=== PATIENT | female | born 1985 | race African-American/Black ===

== ENCOUNTER 2017-10-08 19:19 | Inpatient (IN) | payer OTHER ==
[2017-10-08 19:25] VITALS: BMI 29.0
--- NOTE | 2017-10-08 20:16 | PDOC ---
History of Present Illness - General History Source: Patient Exam Limitations: No Limitations - History of Present Illness Initial Comments: 10/08/17 20:58 The patient is a year old female, with a significant past medical history of elevated blood pressure (not treated) s/p emergent (2 weeks), who presents to the emergency department with, shortness of breath, chest pain, and one episode of hemoptysis. The patient report three days of orthopnea and dyspnea upon exertion. She reports her symptoms to wake her up at night. She reports nausea and one episode of hemoptysis last night. She describes her chest pain as pressure-like. Secondary to her symptoms she reports bilateral edema of her legs since delivery. She denies any history of clots. She denies recent fevers, chills, headache or dizziness. She denies recent vomit, diarrhea or constipation. She denies recent dysuria, frequency, urgency or hematuria. Allergies: NKA Past surgical history: (s/p two weeks) Social history: Nonsmoker. Denies EtOH use and recreational drug use. Primary Care Physician: Dr. Negro Tomlin <Estrada Engle - Last Filed: 10/08/17 23:47> <Sterling Torre - Last Filed: 10/09/17 00:11> - General Chief Complaint: Hemoptysis Stated Complaint: S.O.B Time Seen by Provider: 10/08/17 20:09 Past History <Estrada Engle - Last Filed: 10/08/17 23:47> - Past Medical History COPD: No - Suicide/Smoking/Psychosocial Hx Smoking Status: No Smoking History: Former smoker Have you smoked in the past 12 months: No Number of Cigarettes Smoked Daily: 0 Information on smoking cessation initiated: No Hx Alcohol Use: No Drug/Substance Use Hx: No Substance Use Type: None <Sterling Torre - Last Filed: 10/09/17 00:11> - Past Medical History Allergies/Adverse Reactions: Allergies Allergy/AdvReac Type Severity Reaction Status Date / Time No Known Allergies Allergy Verified 10/08/17 20:07 Home Medications: Ambulatory Orders Pnv No.95/Ferrous Fum/Folic AC [ Tablet] 1 each PO DAILY 07/10/12 Ibuprofen [Motrin -] 600 mg PO QID PRN 10/08/17 Review of Systems - Review of Systems Able to Perform ROS?: Yes Comments:: 10/08/17 20:58 CONSTITUTIONAL: No fever, no chills, no fatigue EYES: No visual changes ENT: No ear pain, no sore throat CARDIOVASCULAR: +chest pain. no palpitations RESPIRATORY:+SOB. +Orthopnea. +Dyspnea upon exertion. +Hemoptysis. No cough GI: +Nausea. No abdominal pain, no vomiting, no constipation, no diarrhea GENITOURINARY: No dysuria, no frequency, no hematuria MUSCULOSKELETAL: No back pain, no joint pain, no myalgias EXTREMITIES: +Bilateral edema of legs. SKIN: No rash NEURO: No headache All Other Systems: Reviewed and Negative <Estrada Engle - Last Filed: 10/08/17 23:47> *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 - Vital Signs Last Vital Signs Temp Pulse Resp BP Pulse Ox 98.2 F 70 20 163/103 100 10/08/17 19:20 10/08/17 19:20 10/08/17 19:20 10/08/17 19:20 10/08/17 19:20 - 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 Comments: 10/08/17 21:55 CONSTITUTIONAL: Well-appearing; well-nourished; in no apparent respiratory distress HEAD: Normocephalic; atraumatic EYES: PERRL; EOM intact ENMT: External appears normal; normal oropharynx NECK: Supple; non-tender; no cervical lymphadenopathy CARD: Normal S1, S2; no murmurs, rubs, or gallops RESP: +Crackles at bases. Normal chest excursion with respiration; breath sounds equal bilaterally; no wheezes, rhonchi, or rales ABD: Suprapubic incision well-appealing without pus or discharge. Soft, non- distended; non-tender; no palpable organomegaly, no palpable hernias EXT: + +1 pitting edema bilateral legs. Normal ROM in all four extremities; non- tender to palpation; distal pulses intact SKIN: Warm, dry, no rash NEURO: No focal neurological deficiencies. <Estrada Engle - Last Filed: 10/08/17 23:47> - Vital Signs Last Vital Signs Temp Pulse Resp BP Pulse Ox 98.2 F 70 20 163/103 100 10/08/17 19:20 10/08/17 19:20 10/08/17 19:20 10/08/17 19:20 10/08/17 19:20 <Sterling Torre - Last Filed: 10/09/17 00:11> ED Treatment Course - LABORATORY CBC & Chemistry Diagram: 10/08/17 20:13 10/08/17 20:20 - ADDITIONAL ORDERS Additional order review: Laboratory Results 10/08/17 20:20 Sodium 138 Potassium 5.3 H Chloride 105 Carbon Dioxide 23 Anion Gap 10 BUN 61 H Creatinine 6.2 H Creat Clearance w eGFR 7.88 Random Glucose 89 Calcium 7.1 L Total Bilirubin 0.5 AST 13 L ALT 26 Alkaline Phosphatase 115 Creatine Kinase 182 Troponin I 0.03 Total Protein 5.9 L Albumin 2.6 L 10/08/17 20:13 RBC 3.38 L MCV 87.0 MCHC 32.5 RDW 14.1 MPV 7.0 L Neutrophils % 68.2 Lymphocytes % 19.6 Monocytes % 8.7 Eosinophils % 2.7 Basophils % 0.8 <Estrada Engle - Last Filed: 10/08/17 23:47> - LABORATORY CBC & Chemistry Diagram: 10/08/17 20:13 10/08/17 20:20 <Sterling Torre - Last Filed: 10/09/17 00:11> Progress Note - Progress Note Progress Note: : bun/cre: 9.0/0.6; H/H: 9.9/30.7 <Sterling Torre - Last Filed: 10/09/17 00:11> Medical Decision Making - Medical Decision Making 10/08/17 9:11pm Call placed to Dr. Jaffe's (insulation machine operator cash van salesperson) answering service, awaiting call back. 9:42pm Second call placed to Dr. Jaffe's answering service, awaiting call back. 9:45pm Call placed to Dr. Win, cost manager cash van salesperson, awaiting call back. 9:58pm Call back from Dr. Magaña, insulation machine operator cash van salesperson, case was discussed. 10:00pm Call back from Dr. Win, case was discussed. 11:05pm Microblog to hospitalist for inpatient telemetry admission. 11:17pm Call back from cash van salesperson hospitalist, Dr. Johnson, case was discussed. EXAM: Venous duplex bilateral lower extremities FINDINGS: There is no DVT of the right or left lower extremity. IMPRESSION: No DVT. Read by: Albert Tyler MD EXAM: US RENAL FINDINGS: Right kidney is 11.2 cm in length and appears slightly echogenic suggesting medical renal disease. There may be tiny nonobstructive stones in the lower pole.Left kidney is 11.7 cm in length and appears slightly echogenic as well. There may be tiny nonobstructive stones in the midpole. No hydronephrosis. IMPRESSION: Suspected medical renal disease and possible tiny bilateral renal stones. No hydronephrosis. Read by: Albert Tyler MD EXAM: CT CHEST without contrast FINDINGS: There is no aortic aneurysm. There is no significant mediastinal or hilar adenopathy. The heart size is normal. The trachea and bronchi are patent. There are minimal bilateral pleural effusions. No pericardial effusion. Mild interstitial edema is noted. Slightly more focal lobular infiltrates are noted bilaterally, predominantly in the right lower lobe which may represent pneumonia. The upper abdominal structures are normal. IMPRESSION: Mild interstitial edema and minimal bilateral pleural effusions with suspected bilateral pneumonia. Read by: Albert Tyler MD <Estrada Engle - Last Filed: 10/08/17 23:47> - Critical Care Time Total Critical Care Time (minutes): 45 Critical Care Statement: The care of this patient involved high complexity decision making to prevent further life threatening deterioration of the patient 's condition and/or to evaluate & treat vital organ system(s) failure or risk of failure. - Medical Decision Making 10/08/17 22:17 Patient is a 31-year-old female, 2 weeks status post emergent for nuchal cord and breech presentation presents with signs and symptoms of cardiomyopathy. Patient complains of dyspnea with minimal exertion, orthopnea, and episode of hemoptysis on the day of arrival. Patient also complaining of persistent lower extremity edema. On initial evaluation, patient is awake and alert, well-appearing, hypertensive, with oxygen saturation of 99% in room air when supine, with crackles at the bases and +1 pitting edema of lower extremities bilaterally. CBC reveals persistent moderate anemia with hemoglobin of 9 and hematocrit of 29. CMP reveals evidence of acute renal failure with BUN of 60 and creatinine of 6.1 (on 09/25/2017, patient's BUN/ creatinine were noted to be 9/0.6). Chest x-ray reveals cardiomegaly, with cephalization, prominent pulmonary vasculature, mild interstitial edema, and left sided pleural effusion. I do not suspect preeclampsia, pulmonary embolism is still in differential and lower extremity Doppler ultrasound will be obtained. Case has been discussed with Dr. Magaña of renal and Dr. Rangel of cardiology. We'll administer hydralazine for hypertension. There is no indication for aggressive diuresis at this time as the risk of irreversible renal injury is high. We will place Flores catheter for measurement of in/out; There is no indication for emergent dialysis either at this time as the patient is not appear to be in any respiratory distress currently. Patient will be admitted to telemetry for a 2-D echocardiogram to evaluate ejection fraction and further evaluation and treatment. 10/08/17 23:22 Patient remains hypotensive. We'll administer hydralazine-50 mg by mouth. Doppler ultrasound of lower extremities reveals no evidence of DVT bilaterally. Renal ultrasound reveals no evidence of hydronephrosis, echogenic renal parenchyma is noted consistent with renal disease. 10/09/17 00:[address] Magaña nephrology. Will hydrate by mouth, will hold off on aggressive diuresis at this time. Will obtain urine electrolytes. Will measure urinary output and input. Will obtain 2-D echo. Will reassess. <Sterling Torre - Last Filed: 10/09/17 00:11> *DC/Admit/Observation/Transfer - Attestations Scribe Attestion: 10/08/17 20:58 Documentation prepared by Estrada Engle, acting as medical referral coordinator for Sterling Torre MD. <Estrada Engle - Last Filed: 10/08/17 23:47> - Discharge Dispostion Admit: Yes - Attestations Physician Attestion: 10/08/17 22:16 The documentation was prepared by the scribe under my direct supervision. I have reviewed the documentation which correctly represents the findings, medical decision-making and critical action taken by me. <Sterling Torre - Last Filed: 10/09/17 00:11> Diagnosis at time of Disposition: cardiomyopathy Acute renal failure Qualifiers: Acute renal failure type: unspecified Qualified Code(s): N17.9 - Acute kidney failure, unspecified - Discharge Dispostion Condition at time of disposition: Fair - Referrals Referrals: Negro Tomlin MD [Primary Care Provider] - - Patient Instructions - Post Discharge Activity
[2017-10-08 20:25] LABS: BASO % 0.8 % (0-2.0); EOS % 2.7 % (0-4.5); HEMATOCRIT 29.4 % (32.4-45.2); HEMOGLOBIN 9.6 GM/dL (10.7-15.3); LYMPH % 19.6 % (8-40); MCH 28.3 pg (25.7-33.7); MCHC 32.5 g/dl (32.0-36.0); MONO % 8.7 % (3.8-10.2); NEUT % 68.2 % (42.8-82.8); PLATELET COUNT 357 K/MM3 (134-434); RBC 3.38 M/mm3 (3.60-5.2); RDW 14.1 % (11.6-15.6); WHITE BLOOD COUNT 5.6 K/mm3 (4.0-10.0)
[2017-10-08 20:48] LABS: ALBUMIN 2.6 g/dl (3.4-5.0); ANION GAP 10 (8-16); BILIRUBIN,TOTAL 0.5 mg/dL (0.2-1.0); BLOOD UREA NITROGEN 61 mg/dL (7-18); CALCIUM 7.1 mg/dL (8.5-10.1); CHLORIDE 105 mmol/L (98-107); CO2 23 mmol/L (21-32); CREATININE 6.2 mg/dL (0.55-1.02); GLUCOSE,RANDOM 89 mg/dL (74-106); POTASSIUM 5.3 mmol/L (3.5-5.1); SGOT/AST 13 U/L (15-37); SGPT/ALT 26 U/L (12-78); SODIUM 138 mmol/L (136-145); TOT PROT 5.9 g/dl (6.4-8.2)
[2017-10-08 20:51] LABS: ALK PHOS 115 U/L (45-117)
[2017-10-08 20:55] LABS: INR 1.08 (0.82-1.09); PROTHROMBIN TIME (PATIENT) 12.2 SEC (9.98-11.88)
[2017-10-08] MEDS ORDERED: hydrALAZINE HCL 50 MG TABLET (FP) PO ONE (23:03)
[2017-10-08] MEDS ORDERED: hydrALAZINE HCL 25 MG TABLET (FP) ONE (23:04)
--- NOTE | 2017-10-09 00:17 | CON.NEP ---
Consult Consult Specialty:: Nephrology Referred by:: dr alex Reason for Consultation:: acute renal failure - History of Present Illness Chief Complaint: sob, orthopnea History of Present Illness: 31 y/o f presents with advanced kidney failure, cardiomegaly, and pulm vascular congestion she is s/p c section for failure to progress and malpresentation on 09/26 she has been taking ibuprofen 600 mg po q 6h since surgery she too percocet along with ibuprofen x 4 rays , then continued with ibuprofen alone of note she reports voiding large amounts of urine and she had massive lower ext edema that is resolving now she also had - Alcohol/Substance Use Hx Alcohol Use: No - Smoking History Smoking history: Former smoker Have you smoked in the past 12 months: No Aproximately how many cigarettes per day: 0 Home Medications - Allergies Allergies/Adverse Reactions: Allergies Allergy/AdvReac Type Severity Reaction Status Date / Time No Known Allergies Allergy Verified 10/08/17 20:07 - Home Medications Home Medications: Ambulatory Orders Pnv No.95/Ferrous Fum/Folic AC [ Tablet] 1 each PO DAILY 07/10/12 Ibuprofen [Motrin -] 600 mg PO QID PRN 10/08/17 Nephrology Consult - Height Height: 5 ft 6 in - Weight Weight: 180 lb - BMI Body Mass Index (BMI): 29.0 - Lab Results CBC,BMP: CBC, BMP 10/08/17 20:13 10/08/17 20:20 Anion Gap: Anion Gap Anion Gap 10 (8-16) 10/08/17 20:20 - 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ination Vital Signs: Vital Signs Temperature 98.2 F 10/08/17 19:20 Pulse Rate 74 10/08/17 23:02 Respiratory Rate 18 10/08/17 23:02 Blood Pressure 170/112 10/08/17 23:02 O2 Sat by Pulse Oximetry (%) 96 10/08/17 23:02 Assessment/Plan 10/08/17 10/08/17 10/08/17 20:13 20:20 21:45 Plt Count 357 Calcium 7.1 L AST 13 L B-Natriuretic Peptide 1422.69 H Total Protein 5.9 L Albumin 2.6 L 1-ADVANCED KIDNEY FAILURE IN SETTING OF HIGH INTAKE OF IBUPROFEN X 2 WEEKS, AND MARKED POLYURIA/DIURESIS OF EDEMA FLUID 2- HEART FAILURE AND HTN R/O HYPERTENSIVE CRISIS VS HTN FROM NSAIDS 3- HYPERKALEMIA TENDENCY HEMODYNAMICALLY MEDIATED TISHA 2/2 NSAIDS, EFFECTIVE VOLUME DEPLETION FROM HEART FAILURE (HIGH BNP) R/O CARDIOPMYOPATHY R/O AIN R/O ACUTE PAPILLARY NECROSIS R/O PRE-ECLAMPSIA (LOW S ALBUMIN) UNDERLYING CKD FROM CHRONIC HTN (DENSE KIDNEYS ON SONO) PLAN- CHECK AND AWAIT U/A FRACTIONAL EXCRETION OF NA URINE EOSINOPHILS STRICT I AND O HYDRATE ORALLY NEXT 24 HRS
[2017-10-09] MEDS: PANTOPRAZOLE SODIUM 40 MG VIAL IVPUSH SCH ×2 (00:38→09:14)
--- NOTE | 2017-10-09 00:47 | HP ---
CHIEF COMPLAINT: Trouble breathing PCP: HISTORY OF PRESENT ILLNESS: 31 yo F with no significant pmhx presents two weeks post with orthopnea and hypertension. She states that 2 weeks ago she had an emergent c- section 2/ to wrapped cord and distress. Post op patient was in significant pain and was given Percocet and Ibuprofen for pain. At that time she noted significant leg edema. She was taking 600mg Ibuprofen Q4h everyday for the past two weeks. She notice over this past week that she has had trouble breathing especially while lying flat. Swelling in legs subsided two days ago but shortness of breath persists. She endorsed increased frequency and urine output over the past week. Urine is light yellow in color and not foul smelling. No dysuria. ER course was notable for: (1)hydralazine for HTN (2)Kidney US shows no hydro (3)Cr. 6.5 Recent Travel:denies PAST MEDICAL HISTORY:none PAST SURGICAL HISTORY: Social History: Smoking:never Alcohol:denies Drugs: denies Family History: Allergies No Known Allergies Allergy (Verified 10/08/17 20:07) HOME MEDICATIONS: Home Medications Medication Instructions Recorded Pnv No.95/Ferrous Fum/Folic AC 1 each PO DAILY 07/10/12 [ Tablet] Ibuprofen [Motrin -] 600 mg PO QID PRN 10/08/17 REVIEW OF SYSTEMS CONSTITUTIONAL: generalized weakness, malaise, Absent: fever, chills, diaphoresis, loss of appetite, weight change HEENT: Absent: rhinorrhea, nasal congestion, throat pain, throat swelling, difficulty swallowing, mouth swelling, ear pain, eye pain, visual changes CARDIOVASCULAR: Absent: chest pain, syncope, palpitations, irregular heart rate, lightheadedness , peripheral edema RESPIRATORY: shortness of breath, dyspnea with exertion, orthopnea Absent: cough, , wheezing, stridor, hemoptysis GASTROINTESTINAL: abdominal pain, abdominal distension Absent:, nausea, vomiting, diarrhea, constipation, melena, hematochezia GENITOURINARY: Absent: dysuria, frequency, urgency, hesitancy, hematuria, flank pain, genital pain MUSCULOSKELETAL: Absent: myalgia, arthralgia, joint swelling, back pain, neck pain SKIN: Absent: rash, itching, pallor HEMATOLOGIC/IMMUNOLOGIC: Absent: easy bleeding, easy bruising, lymphadenopathy, frequent infections ENDOCRINE: Absent: unexplained weight gain, unexplained weight loss, heat intolerance, cold intolerance NEUROLOGIC: Absent: headache, focal weakness or paresthesias, dizziness, unsteady gait, seizure, mental status changes, bladder or bowel incontinence PSYCHIATRIC: Absent: anxiety, depression, suicidal or homicidal ideation, hallucinations. PHYSICAL EXAMINATION Vital Signs - 24 hr 10/08/17 10/08/17 19:20 23:02 Temperature 98.2 F Pulse Rate 70 Pulse Rate [ 74 Apical] Respiratory 20 18 Rate Blood Pressure 163/103 Blood Pressure 170/112 [Right Arm] O2 Sat by Pulse 100 96 Oximetry (%) GENERAL: AAOx3 HEAD: NC/AT EYES: PERRLA,EOMI EARS, NOSE, THROAT: Moist mucous membranes. NECK:supple, No JVD LUNGS: Decreased breath sounds bilateral bases, no wheezing or rales. HEART: RRR, No M/G/R ABDOMEN: Soft,Mild epigastric tenderness, incision C/D/I, normoactive bowel sounds, no guarding, no rebound, no masses. No hepatomegaly or splenomegaly. MUSCULOSKELETAL: No CVA tenderness. UPPER EXTREMITIES: 2+ pulses, warm, well-perfused. No cyanosis. No clubbing. No peripheral edema. LOWER EXTREMITIES: 2+ pulses, warm, well-perfused. No calf tenderness. trace peripheral edema. NEUROLOGICAL: Cranial nerves II-XII intact. Normal speech.gait not observed. PSYCHIATRIC: Cooperative. Good eye contact. Appropriate mood and affect. Laboratory Results - last 24 hr 10/08/17 10/08/17 10/08/17 20:13 20:20 20:30 WBC 5.6 RBC 3.38 L Hgb 9.6 L Hct 29.4 L MCV 87.0 MCH 28.3 MCHC 32.5 RDW 14.1 Plt Count 357 MPV 7.0 L Neutrophils % 68.2 Lymphocytes % 19.6 Monocytes % 8.7 Eosinophils % 2.7 Basophils % 0.8 PT with INR INR Sodium 138 Potassium 5.3 H Chloride 105 Carbon Dioxide 23 Anion Gap 10 BUN 61 H Creatinine 6.2 H Creat Clearance w eGFR 7.88 Random Glucose 89 Calcium 7.1 L Magnesium 2.3 Total Bilirubin 0.5 AST 13 L ALT 26 Alkaline Phosphatase 115 Creatine Kinase 182 Creatine Kinase Index 0.6 CK-MB (CK-2) 1.101 Troponin I 0.03 B-Natriuretic Peptide Total Protein 5.9 L Albumin 2.6 L 10/08/17 10/08/17 20:32 21:45 WBC RBC Hgb Hct MCV MCH MCHC RDW Plt Count MPV Neutrophils % Lymphocytes % Monocytes % Eosinophils % Basophils % PT with INR 12.20 H INR 1.08 Sodium Potassium Chloride Carbon Dioxide Anion Gap BUN Creatinine Creat Clearance w eGFR Random Glucose Calcium Magnesium Total Bilirubin AST ALT Alkaline Phosphatase Creatine Kinase Creatine Kinase Index CK-MB (CK-2) Troponin I B-Natriuretic Peptide 1422.69 H Total Protein Albumin ASSESSMENT/PLAN: 31 yo F with no significant pmhx presents two weeks post with orthopnea and hypertension admitted for hypertensive emergency in setting of TISHA. Problem List - Problem (1) Acute renal failure Assessment/Plan: Unsure of etiology differential includes hypoperfusion 2/2 cardiomyopathy vs. NSAID induced AIN. * UA still pending * Nephro consult appreciated. * NO IVF will encourage oral hydration as per nephrology. * strict I/O's * Urine lytes and creatinine pending. * spot urine protein * Kidney US shows dense kidneys with no signs of hydronephrosis. (2) cardiomyopathy Assessment/Plan: CT chest was negative for pericardial effusion. * Echo pending. * Cardiology consulted * Admit to telemetry * Strict i/o's * daily weights * Hydralazine 25mg PO BID for BP control * Labetolol IV push PRN. Visit type - Emergency Visit Emergency Visit: Yes ED Registration Date: 10/08/17 Care time: The patient presented to the Emergency Department on the above date and was hospitalized for further evaluation of their emergent condition. - New Patient This patient is new to me today: Yes Date on this admission: 10/11/17 - Critical Care Critical Care patient: No
[2017-10-09] MEDS ORDERED: ACETAMINOPHEN 325 MG TABLET (FP) PO ONE (01:23)
[2017-10-09 03:55] LABS: URINE APPEARANCE CLEAR; URINE BILIRUBIN NEGATIVE (NEGATIVE); URINE BLOOD 3+ (NEGATIVE); URINE COLOR STRAW; URINE GLUCOSE (UA) NEGATIVE (NEGATIVE); URINE KETONE NEGATIVE (NEGATIVE); URINE LEUK ESTERASE TRACE (NEGATIVE); URINE NITRITE NEGATIVE (NEGATIVE); URINE UROBILINOGEN NEGATIVE mg/dL (0.2-1.0)
[2017-10-09 03:57] LABS: URINE PROTEIN 1+ (NEGATIVE)
[2017-10-09 04:00] LABS: EPI CELLS RARE /HPF (FEW)
[2017-10-09] MEDS ORDERED: hydrALAZINE HCL 50 MG TABLET (FP) PO ONE (04:07)
[2017-10-09] MEDS ORDERED: CALCIUM GLUCONATE 10% - 1,000 MG/10 ML VIAL IVPUSH ONE (04:16)
[2017-10-09 04:31] LABS: URINE CREATININE 33.8 mg/dL (20-320)
[2017-10-09] MEDS ORDERED: HYDROmorphone HCL CARPU-JECT 1 MG/1 ML DISP.SYRIN IVPUSH PRN (05:01)
[2017-10-09] MEDS ORDERED: HYDROmorphone HCL CARPU-JECT 1 MG/1 ML DISP.SYRIN IVPUSH ONE (05:01)
[2017-10-09] MEDS ORDERED: HYDROmorphone HCL CARPU-JECT 2 MG/1 ML DISP.SYRIN ONE (05:04)
[2017-10-09] MEDS: HEPARIN NA (PORCINE) 5,000 UNITS/ML 1ML VIAL SQ SCH ×2 (05:21→14:20)
[2017-10-09] MEDS: DOCUSATE SODIUM 100 MG CAPSULE (FP) PO SCH ×2 (05:21→14:20)
--- NOTE | 2017-10-09 06:27 | PN ---
Teaching Attending Note Name of Resident: Maximilian Miguel ATTENDING PHYSICIAN STATEMENT I saw and evaluated the patient. Chart, data, imagining reviewed. I reviewed the resident's note and discussed the case with the resident. I agree with the resident's findings and plan as documented. SUBJECTIVE: 31 yo F with no significant pmhx 2 weeks post c/o orthopnea and shortness of breath. 2 weeks ago she had an emergent . Post op patient was in pain and was Rxed Percocet and Ibuprofen for pain. She was taking 600mg Ibuprofen Q4h everyday for the past two weeks. She c/o worsening SOB especially when lying flat. She also c/o some dull lower back pain , black stools, and dull epigastric pain. OBJECTIVE: Last Vital Signs Temp Pulse Resp BP Pulse Ox 97.4 F L 77 20 175/102 96 10/08/17 23:24 10/08/17 23:24 10/08/17 23:24 10/08/17 23:24 10/09/17 01:00 General- appears mildly uncomfortable, nontoxic appearing HEENT - atraumatic, normocephalic, moist mucous membranes Neck- no JVD appreciated CV-s1+s2+ RRR CHest- cta b/l abdomen- soft, nontender, BS+ , no CVA tenderness Ext- 1+ pedal edema in lower ext b/l Abnormal Lab Results 10/08/17 10/08/17 10/08/17 20:13 20:20 20:32 RBC 3.38 L Hgb 9.6 L Hct 29.4 L MPV 7.0 L PT with INR 12.20 H Potassium 5.3 H BUN 61 H Creatinine 6.2 H Calcium 7.1 L AST 13 L B-Natriuretic Peptide Total Protein 5.9 L Albumin 2.6 L Urine Protein Urine Blood U Random Total Protein 10/08/17 10/09/17 10/09/17 21:45 00:33 00:33 RBC Hgb Hct MPV PT with INR Potassium BUN Creatinine Calcium AST B-Natriuretic Peptide 1422.69 H Total Protein Albumin Urine Protein 1+ H Urine Blood 3+ H U Random Total Protein 46 H ASSESSMENT AND PLAN: #Acute renal failure- likely AIN 2/2 NSAID use - patient making copious urine. Renal U/S compatible with renal injury. [employer] transitional care nurse was contacted and saw the patient. -admit to telemetry -urine lytes -urine eosinophils -repeat UA -grimes catheter placement -accurate I/O -daily weights -avoid nephrotoxic medications -renal consult #Possible cardiomyopathy- evidenced by + orthopnea and b/l pedal edema. These symptoms may also be 2/2 to renal failure but cannot r/o cardiac component. -transthoracic echo -metoprolol 50mg po bid -hydralazine 50mg PO q8hrs -avoid ACEi and diuretic at this time due to TISHA -2g Na diet -cardiology evaluation #HTN -hydralazine and metoprolol #Epigastric pain/dark stool - may be dyspepsia related to excessive NSAID use. R /o Upper GI bleed. -PPI -monitor H/H -send FOBT #Hyperkalemia -likely 2/2 renal failure -kayexalate PO -calcium gluconate -repeat K level #DVT ppx -heparin sc
[2017-10-09 06:44] LABS: BASO % 0.7 % (0-2.0); EOS % 2.4 % (0-4.5); HEMATOCRIT 29.6 % (32.4-45.2); HEMOGLOBIN 9.6 GM/dL (10.7-15.3); LYMPH % 14.8 % (8-40); MCH 28.1 pg (25.7-33.7); MCHC 32.4 g/dl (32.0-36.0); MEAN CELL VOLUME 86.7 fl (80-96); MEAN PLT VOLUME 7.3 fl (7.5-11.1); MONO % 6.4 % (3.8-10.2); NEUT % 75.7 % (42.8-82.8); PLATELET COUNT 390 K/MM3 (134-434); RBC 3.41 M/mm3 (3.60-5.2); WHITE BLOOD COUNT 6.4 K/mm3 (4.0-10.0)
[2017-10-09 07:00] LABS: CHLORIDE 106 mmol/L (98-107); SODIUM 138 mmol/L (136-145)
[2017-10-09 07:09] LABS: ALBUMIN 2.6 g/dl (3.4-5.0); ALK PHOS 112 U/L (45-117); ANION GAP 9 (8-16); BILIRUBIN,TOTAL 0.8 mg/dL (0.2-1.0); BLOOD UREA NITROGEN 64 mg/dL (7-18); CALCIUM 7.5 mg/dL (8.5-10.1); CO2 23 mmol/L (21-32); CREATININE 5.7 mg/dL (0.55-1.02); GLUCOSE,RANDOM 77 mg/dL (74-106); MAGNESIUM 2.2 mg/dL (1.8-2.4); PHOSPHOROUS 6.2 mg/dL (2.5-4.9); SGOT/AST 12 U/L (15-37); SGPT/ALT 23 U/L (12-78); TOT PROT 5.9 g/dl (6.4-8.2)
--- NOTE | 2017-10-09 08:42 | CON.CARD ---
Consult Consult Specialty:: Cardiology for Dr. Rahman/Beata Referred by:: ER Reason for Consultation:: SOB/Edema/CHF/HTN - History of Present Illness Chief Complaint: SOB/edema History of Present Illness: 31 year old woman with a history of intermittent HTN not previously on medications s/p urgent (due to distress) 2 weeks ago after induction of labor at 42 weeks gestation admitted with SOB, LE edema, HTN, TISHA. Pt was seen and examined today in nad, sitting up in bed. She states that after her she felt well other than pain at the surgical site and lower back pain. She has been taking percocet and ibuprofen every 4 hours since the c- section. She states that she had b/l LE edema which started right after the c- section but resolved as of this tuesday (day prior to admission). She states that starting night (2 days prior to admission) she began feeling SOB when lying down in bed. she states the sob came on suddenly when she went to lay down to sleep, she had PND night and SOB continued tuesday during the day and through tuesday night thus she came to ED yesterday. She states that she has had intermittent HTN for years including during her however she was not put on medication as it was only intermittent. She believes her BP was elevated intermittently as well in the hospital but does not think she received any medication at that time. She states that she has been urinating more than usual in the past week. Denies any chest pain, no headaches , no flank pain, does admit to lower back pain. no palpitations, lightheadedness , dizziness, syncope, or near syncope. - History Source History Provided By: Patient, Medical Record Limitations to Obtaining History: No Limitations - Past Medical History Cardio/Vascular: Yes: HTN ...: No ...: 5 ...Para: 5 - Alcohol/Substance Use Hx Alcohol Use: No - Smoking History Smoking history: Former smoker Have you smoked in the past 12 months: No Aproximately how many cigarettes per day: 0 - Social History ADL: Independent History of Recent Travel: No Home Medications - Allergies Allergies/Adverse Reactions: Allergies Allergy/AdvReac Type Severity Reaction Status Date / Time No Known Allergies Allergy Verified 10/08/17 20:07 - Home Medications Home Medications: Ambulatory Orders Pnv No.95/Ferrous Fum/Folic AC [ Tablet] 1 each PO DAILY 07/10/12 Ibuprofen [Motrin -] 600 mg PO QID PRN 10/08/17 Family Disease History - Family Disease History Family History: Denies Review of Systems - Review of Systems Constitutional: denies: No Symptoms, Chills, Diaphoresis, Fever, Lethargy, Loss of Appetite, Malaise, Night Sweats, Unintentional Wgt. Loss, Weakness, Other Eyes: denies: No Symptoms, Blind Spots, Blurred Vision, Double Vision, Eye Pain , Floaters, Photophobia, Recent Change in Vision, Other HENT: denies: No Symptoms, Difficult Swallowing, Ear Discharge, Ear Pain, Epistaxis, Gingival Bleeding, Hearing Loss, Mouth Swelling, Nasal Congestion, Ocular Prosthesis, Throat Pain, Toothache, Ringing in Ears, Other Neck: denies: No Symptoms, Decreased ROM, Lumps, Pain on Movement, Stiffness, Swollen Glands, Tenderness, Other Cardiovascular: reports: Edema, Shortness of Breath. denies: No Symptoms, Chest Pain, Palpitations, Other Respiratory: reports: Exercise Intolerance, Orthopnea, PND, SOB, SOB on Exertion. denies: No Symptoms, Cough, Hemoptysis, Snoring, Wheezing, Other Gastrointestinal: denies: No Symptoms, Abdominal Pain, Bloating, Constipation, Diarrhea, Dysphagia, Indigestion, Melena, Nausea, Rectal Bleeding, Vomiting, Vomiting Blood, Other Genitourinary: reports: Other (increased urine output). denies: No Symptoms, Burning, Discharge, Dysuria, Flank Pain, Frequency, Hematuria, Incontinence, Lesions, Menses, Pain, Testicular Mass, Testicular Pain, Testicular Swelling, Urgency, Vaginal Bleeding Breasts: denies: No Symptoms Reported, See HPI, Breast Implants, Discharge from Nipple, Lumps, Pain, Skin Changes, Other Musculoskeletal: denies: No Symptoms, Back Pain, Crepitus, Decreased ROM, Extremity Pain, Joint Pain, Joint Swelling, Muscle Pain, Muscle Cramps, Muscle Weakness, Other Integumentary: reports: Incision. denies: No Symptoms, Blister, Bruising, Change in Color, Eczema, Erythema, Lesions, Lump, Pallor, Pruritis, Rash, Wound , Other Neurological: denies: No Symptoms, Change in LOC, Change in Speech, Confusion, Dizziness, Headache, Incoordination, Numbness, Parasthesia, Pre-Existing Deficit , Seizure, Syncope, Tremors, Unsteady Gait, Weakness, Other Endocrine: denies: No Symptoms, Excessive Sweating, Flushing, Increased Hunger, Increased Thirst, Intolerance to Cold, Intolerance to Heat, Unexplained Weight Gain, Unexplained Weight Loss, Other Hematology/Lymphatic: denies: No Symptoms, Easily Bruised, Excessive Bleeding, Swollen Glands, Other Psychiatric: denies: No Symptoms, Altered Sleep Pattern, Anxiety, Depression, Hallucinations, Panic, Paranoia, Suicidal, Other - Risk Factors Known Risk Factors: Yes: Hypertension Vital Signs: Vital Signs Temperature 98.2 F 10/09/17 08:03 Pulse Rate 65 10/09/17 08:03 Respiratory Rate 17 10/09/17 08:08 Blood Pressure 168/95 10/09/17 08:03 O2 Sat by Pulse Oximetry (%) 99 10/09/17 08:08 Constitutional: Yes: Well Nourished, No Distress, Calm Eyes: Yes: WNL, Conjunctiva Clear, EOM Intact, PERRL HENT: Yes: WNL, Atraumatic, Normocephalic Neck: Yes: WNL, Supple, Trachea Midline Respiratory: Yes: Regular, Diminished, Rales (slight at bases). No: Rhonchi, Wheezes Gastrointestinal: Yes: Normal Bowel Sounds, Soft. No: Distention, Tenderness Cardiovascular: Yes: Regular Rate and Rhythm. No: Bradycardia, Tachycardia, Pulse Irregular, Gallop, Rub, Varicosities JVD: No Carotid Bruit: No PMI: Non-Displaced Heart Sounds: Yes: S1, S2. No: Split S2, S3, S4, Clicks, Gallop, Rub, Bruit Murmur: No: Systolic Murmur, Diastolic Murmur Musculoskeletal: Yes: WNL Extremities: Yes: WNL Edema: No Peripheral Pulses WNL: Yes Peripheral Pulses: 2+ Left Doralis Pedis, 2+ Right Dorsalis Pedis Integumentary: Yes: WNL Neurological: Yes: WNL, Alert, Oriented ...Motor Strength: WNL Psychiatric: Yes: WNL, Alert, Oriented - Other Data Labs, Other Data: CBC, BMP 10/09/17 05:05 10/09/17 05:05 INR, PTT INR 1.08 (0.82-1.09) 10/08/17 20:32 Troponin, BNP 10/08/17 10/08/17 10/09/17 20:20 21:45 00:38 Troponin I 0.03 0.02 B-Natriuretic Peptide 1422.69 H Troponin, BNP 10/08/17 10/08/17 10/09/17 20:20 21:45 00:38 Troponin I 0.03 0.02 B-Natriuretic Peptide 1422.69 H EKG-NSR 73bpm, LAE, T inversion V2, V3, aVL, possible anterolateral ischemia Echo: Pending Imaging - Results Chest X-ray: Report Reviewed, Image Reviewed EKG: Report Reviewed, Image Reviewed Other: Report Reviewed, Image Reviewed (tele-sinus tach, no sig arrhythmias) Assessment/Plan 31 year old woman with a history of intermittent HTN not previously on medications s/p urgent (due to distress) 2 weeks ago after induction of labor at 42 weeks gestation admitted with SOB, LE edema, HTN, TISHA. Pt was seen and examined today in nad, sitting up in bed. She states that after her she felt well other than pain at the surgical site and lower back pain. She has been taking percocet and ibuprofen every 4 hours since the c- section. She states that she had b/l LE edema which started right after the c- section but resolved as of this tuesday (day prior to admission). She states that starting night (2 days prior to admission) she began feeling SOB when lying down in bed. she states the sob came on suddenly when she went to lay down to sleep, she had PND night and SOB continued tuesday during the day and through tuesday night thus she came to ED yesterday. She states that she has had intermittent HTN for years including during her however she was not put on medication as it was only intermittent. She believes her BP was elevated intermittently as well in the hospital but does not think she received any medication at that time. She states that she has been urinating more than usual in the past week. Denies any chest pain, no headaches , no flank pain, does admit to lower back pain. no palpitations, lightheadedness , dizziness, syncope, or near syncope. SOB/edema-with Imaging showing pulmonary vascular congestion, enlarged cardiac silhouette -concern for peripartum cardiomyopathy vs pre-eclampsia -HTN control -will arrange for urgent echo to be done today -LE edema has resolved and pt reports increased urine output with elevated creatinine, lung exam does not sound significantly fluid overloaded thus would hold off on diuresis for now -depending on results of echo, if confirmed cardiomyopathy pt may benefit from transfer to a tertiary care center for availability of advanced cardiac support -given significant HTN and increased urine output, minimal current symptoms, does not appear to be in cardiogenic shock (considered due to TISHA in this setting) TISHA-with polyuria and small protein in urine -possibly due to NSAIDS vs pre-eclampsia -clinically given minimal current symptoms, increased urine output, elevated BP , cardiogenic shock is not the source of TISHA -Nephrology to evaluate -avoid nephrotoxic meds -treat HTN -monitor labs, urine HTN-uncontrolled, possible chronic intermittent HTN, possible pre-eclampsia -discussed with Hospitalist, will change metoprolol to Labetalol -if needed can also consider changing hydralazine to nifedipine Possible Pre-eclampsia -monitor CBC, CMP -HTN treatment as above -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
--- NOTE | 2017-10-09 09:52 | PN ---
Progress Note (short form) - Note Progress Note: Subjective: no fever or chill, sOB is better. has chest discomfort , for few days , ( pressure line in lower retrosternal area, ) no cp . denies cough . has abd pain same after her CS. increased volume of urine. no hematuria . b/l LE edema after CS . no pain in calves Objective: Vital Signs: Last Vital Signs Temp Pulse Resp BP Pulse Ox 98.2 F 65 17 168/95 99 10/09/17 08:03 10/09/17 08:03 10/09/17 08:08 10/09/17 08:03 10/09/17 08:08 Laboratory Results - last 24 hr 10/08/17 10/08/17 10/08/17 20:13 20:20 20:30 WBC 5.6 RBC 3.38 L Hgb 9.6 L Hct 29.4 L MCV 87.0 MCH 28.3 MCHC 32.5 RDW 14.1 Plt Count 357 MPV 7.0 L Neutrophils % 68.2 Lymphocytes % 19.6 Monocytes % 8.7 Eosinophils % 2.7 Basophils % 0.8 PT with INR INR Sodium 138 Potassium 5.3 H Chloride 105 Carbon Dioxide 23 Anion Gap 10 BUN 61 H Creatinine 6.2 H Creat Clearance w eGFR 7.88 Random Glucose 89 Calcium 7.1 L Phosphorus Magnesium 2.3 Total Bilirubin 0.5 AST 13 L ALT 26 Alkaline Phosphatase 115 Creatine Kinase 182 Creatine Kinase Index 0.6 CK-MB (CK-2) 1.101 Troponin I 0.03 B-Natriuretic Peptide Total Protein 5.9 L Albumin 2.6 L Urine Color Urine Appearance Urine pH Ur Specific [place] Urine Protein Urine Glucose (UA) Urine Ketones Urine Blood Urine Nitrite Urine Bilirubin Urine Urobilinogen Urine WBC (Auto) Urine RBC (Auto) Ur Epithelial Cells U Random Total Protein Ur Random Sodium Urine Creatinine 10/08/17 10/08/17 10/09/17 20:32 21:45 00:33 WBC RBC Hgb Hct MCV MCH MCHC RDW Plt Count MPV Neutrophils % Lymphocytes % Monocytes % Eosinophils % Basophils % PT with INR 12.20 H INR 1.08 Sodium Potassium Chloride Carbon Dioxide Anion Gap BUN Creatinine Creat Clearance w eGFR Random Glucose Calcium Phosphorus Magnesium Total Bilirubin AST ALT Alkaline Phosphatase Creatine Kinase Creatine Kinase Index CK-MB (CK-2) Troponin I B-Natriuretic Peptide 1422.69 H Total Protein Albumin Urine Color Straw Urine Appearance Clear Urine pH 6.0 Ur Specific [place] 1.006 Urine Protein 1+ H Urine Glucose (UA) Negative Urine Ketones Negative Urine Blood 3+ H Urine Nitrite Negative Urine Bilirubin Negative Urine Urobilinogen Negative Urine WBC (Auto) 5 Urine RBC (Auto) 25 Ur Epithelial Cells Rare U Random Total Protein Ur Random Sodium Urine Creatinine 10/09/17 10/09/17 10/09/17 00:33 00:38 05:05 WBC 6.4 RBC 3.41 L Hgb 9.6 L Hct 29.6 L MCV 86.7 MCH 28.1 MCHC 32.4 RDW 14.0 Plt Count 390 MPV 7.3 L Neutrophils % 75.7 Lymphocytes % 14.8 D Monocytes % 6.4 Eosinophils % 2.4 Basophils % 0.7 PT with INR INR Sodium Potassium Chloride Carbon Dioxide Anion Gap BUN Creatinine Creat Clearance w eGFR Random Glucose Calcium Phosphorus Magnesium Total Bilirubin AST ALT Alkaline Phosphatase Creatine Kinase Creatine Kinase Index CK-MB (CK-2) Troponin I 0.02 B-Natriuretic Peptide Total Protein Albumin Urine Color Urine Appearance Urine pH Ur Specific [place] Urine Protein Urine Glucose (UA) Urine Ketones Urine Blood Urine Nitrite Urine Bilirubin Urine Urobilinogen Urine WBC (Auto) Urine RBC (Auto) Ur Epithelial Cells U Random Total Protein 46 H Ur Random Sodium 73 Urine Creatinine 33.8 10/09/17 05:05 WBC RBC Hgb Hct MCV MCH MCHC RDW Plt Count MPV Neutrophils % Lymphocytes % Monocytes % Eosinophils % Basophils % PT with INR INR Sodium 138 Potassium 5.0 Chloride 106 Carbon Dioxide 23 Anion Gap 9 BUN 64 H Creatinine 5.7 H Creat Clearance w eGFR 8.68 Random Glucose 77 Calcium 7.5 L Phosphorus 6.2 H Magnesium 2.2 Total Bilirubin 0.8 D AST 12 L ALT 23 Alkaline Phosphatase 112 Creatine Kinase Creatine Kinase Index CK-MB (CK-2) Troponin I B-Natriuretic Peptide Total Protein 5.9 L Albumin 2.6 L Urine Color Urine Appearance Urine pH Ur Specific [place] Urine Protein Urine Glucose (UA) Urine Ketones Urine Blood Urine Nitrite Urine Bilirubin Urine Urobilinogen Urine WBC (Auto) Urine RBC (Auto) Ur Epithelial Cells U Random Total Protein Ur Random Sodium Urine Creatinine 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: NAD , AAOx3, cooperatie HEENT: dry MM, no JVD , no facial droop CV: RRR, nl S1, S2, no MRG. No JVD Lungs : CTAB EXT: trace pitting edema , DP 2 + b/l , no calf tenderness Abd; TTP in all quadrants, no rebound tenderness or guarding, soft, NL BS , healing CS scar in suprapubic area Imaging: CT , cxray images and reports reviewed, US report reviewed. Assessment/Plan: Unfortunate 31 y/o lady with h/o untreated HTN prior to her , who is now s/p CS delivery who presented with SOB and was found to have TISHA and pulmonary edema and HTN 1- SOB: due to pulmonary edema , likely from HTN emergency in the setting of untreated HTN or from renal failure induced volume overload. in DDX is cardiomyopathy ( less likely) PE is unlikely with WELLS score of 1.5( recent immobilization), no CP, there is pulmonary edema to explain SOB , has no DVT on US ,No tachycardia and no Hypoxia . EKG with no S1Q3T3, and no signs of R heart strain ACS is unlikely with no ischemic EKG changes and nl trop - Echo is pending to evaluate EF and any R heart strain - monitor off diuresis given renal failure - cont BB , and HZN to control BP. - follwo cardiac Recs 2- TISHA: likely intrinsic renal disease AIN form NSAIDs use. FENA 9.7%. no hx of renal disease. renal US , noted. Protein /cr 1.2 , no nephrotic range protein uria . - monitor with oral hydration now. - further Recs from renal 3- HTN emergency: unlikely preeclampsia . Nl LFTS . will d/w renal - cont HZN, and metoprolol - asked pt to dump breast milk ( no enough data on HZN safety, metoprolol is probably safe from limited human data ) 4- hyperkalemia : resolved. DVT PX Visit type - Emergency Visit Emergency Visit: Yes ED Registration Date: 10/08/17 Care time: The patient presented to the Emergency Department on the above date and was hospitalized for further evaluation of their emergent condition. - New Patient This patient is new to me today: Yes Date on this admission: 10/09/17 - Critical Care Critical Care patient: No
[2017-10-09] MEDS ORDERED: hydrALAZINE HCL 25 MG TABLET (FP) PO SCH (10:00)
[2017-10-09] MEDS ORDERED: METOPROLOL TARTRATE 25 MG TABLET (FP) PO SCH (10:00)
--- NOTE | 2017-10-09 10:30 | EKG ---
Test Reason : Blood Pressure : / mmHG Vent. Rate : 073 BPM Atrial Rate : 073 BPM P-R Int : 166 ms QRS Dur : 078 ms QT Int : 432 ms P-R-T Axes : 052 097 095 degrees QTc Int : 475 ms NORMAL SINUS RHYTHM POSSIBLE LEFT ATRIAL ENLARGEMENT RIGHTWARD AXIS T WAVE ABNORMALITY, CONSIDER ANTERIOR ISCHEMIA PROLONGED QT ABNORMAL ECG WHEN COMPARED WITH ECG OF 10-JUL-2012 23:32, ST NOW DEPRESSED IN LATERAL LEADS T WAVE INVERSION NO LONGER EVIDENT IN INFERIOR LEADS CLINICAL CORRELATION IS RECOMMENDED Confirmed by WAGNER RODRIGUEZ, MATT ([id number]) on 10/09/2017 10:29:53 AM Referred By: Confirmed By:MATT EDWARD MD
[2017-10-09] MEDS ORDERED: oxyCODONE HCL 5 MG TABLET PO PRN (10:58)
[2017-10-09] MEDS ORDERED: LABETALOL HCL 200 MG TABLET (FP) PO SCH (11:00)
--- NOTE | 2017-10-09 13:39 | CON.OBG ---
Consult Consult Specialty:: sports management intern Referred by:: Story hanady Reason for Consultation:: post op c/section 2 weeks ago for ob evaluation - History of Present Illness Chief Complaint: 31 yrs , s/p c/section 09/26/17 is admitted for SOB , blood in sputum, is diagnosed heart failure, & ac renal failure , for Ob evaluation History of Present Illness: patient had Primary C/section at [facility] probably due to failure to progress, malposition of presenting part . as per patient she was 5 cm dilated at 12.00am ,& she remained 5 cm until 7.00Pm , Baby Boy, Wt 8'14" Postop course was uneventful. She was discharged on 09/30/17 .. Post op course was afebrile & uneventful. Karrie were removed post operatively .No c/o incision drainage or redness She gives h/o Hypertension labile during antepartum & period, but she did not require any meds She was discharged on Pain meds Ibuprofen 600 mg q 6h & Percocet , , Stool softner . She was recommended to continue vitamins & iron but she did not take post op . . She started experiencing sob since Tuesday10/05/17, noticed increasing edema in her legs denies h/o headache or vomiting or epigastric pain cramps & incision pain scale 5/10 lochia is small amount, no odor she was breast feeding , presently pumping & dumping OB history : 4 G1 2002 Girl ( [place]). 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 No: Migraine, Seizure Cardio/Vascular: Yes: HTN, Other (no chest pain ) Pulmonary: Yes: Other (SOB & blood in sputum ). No: Asthma, Bronchitis Gastrointestinal: Yes: Hemorrhoids. No: Constipation Renal/: Yes: UTI (once in past ), Other (she was passing adequate amount of urine as per patient ) Reproductive: Yes: Other (last pap wnl as per patient during .) ...: No ...: 5 ...Para: 5 (LD 09/26/2017 by primary c/section at [facility] ) Heme/Onc: Yes: Anemia. No: Bleeding Disorder Infectious Disease: Yes: STD's (h/o chlamydia infection treated in 2010) Psych: Yes: Other (denies mentak health problems ). No: Addictions, Anxiety, Bipolar, Depression, Panic, Psychosis, Schizophrenia ENT: No: Allergic Rhinitis, Sinusitis Endocrine: No: Diabetes Mellitus, Hyperthyroidism, Hypothyroidism - Past Surgical History Past Surgical History: No: (09/26/2017 [place] ) - Alcohol/Substance Use Hx Alcohol Use: No History of Substance Use: reports: None - Smoking History Smoking history: Former smoker Have you smoked in the past 12 months: No Aproximately how many cigarettes per day: 0 - Social History ADL: Independent History of Recent Travel: No Home Medications - Allergies Allergies/Adverse Reactions: Allergies Allergy/AdvReac Type Severity Reaction Status Date / Time No Known Allergies Allergy Verified 10/08/17 20:07 - Home Medications Home Medications: Ambulatory Orders Pnv No.95/Ferrous Fum/Folic AC [ Tablet] 1 each PO DAILY 07/10/12 Docusate Sodium [Colace -] 100 mg PO TID capsule 10/09/17 Labetalol HCl [Normodyne -] 200 mg PO BID tablet 10/09/17 Nifedipine ER [Procardia XL -] 30 mg PO DAILY tab.er.24 10/09/17 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-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 Vital Signs: Vital Signs Temperature 98.2 F 10/09/17 08:03 Pulse Rate 65 10/09/17 08:03 Respiratory Rate 17 10/09/17 08:08 Blood Pressure 162/93 10/09/17 10:45 O2 Sat by Pulse Oximetry (%) 99 10/09/17 08:08 Selected Entries 10/08/17 10/08/17 10/09/17 19:20 23:24 04:00 Blood Pressure 163/103 175/102 175/105 10/09/17 10/09/17 10/09/17 06:00 08:03 10:00 Blood Pressure 152/99 168/95 146/104 Constitutional: Yes: Pallor, Other (upset being sick) Eyes: Yes: WNL HENT: Yes: WNL Neck: Yes: WNL Cardiovascular: Yes: Other (Ex as per cloth painter) Respiratory: Yes: Other (EX as per PCP) Gastrointestinal: Yes: WNL, Normal Bowel Sounds, Soft. No: Distention ...Rectal Exam: Yes: Deferred Renal/: No: CVA Tenderness - Left, CVA Tenderness - Right Pelvis: Yes: Other (patient declined pelvic exam) External Genitalia: Yes: Normal Internal Exam Deferred: No Vaginal Exam: Yes: Bleeding (lochia small amount , no odor) ....Post : Yes: Uterus firm (below umblicus , 16 weeks size .), Uterus non -tender, Uterus tender (minimal tenderness) Breast(s): Yes: WNL (soft, not engorged . milk pumping & dumping) Musculoskeletal: Yes: WNL Extremities: Yes: WNL. No: Calf Tenderness Edema: LLE: 1+, RLE: 1+ Wound/Incision: Yes: Clean/Dry, Well Approximated, Open to air. No: Draining, Reddened, Bleeding Neurological: Yes: WNL, Alert, Oriented ...Motor Strength: WNL Psychiatric: Yes: Other (upset) Labs: CBC, BMP 10/09/17 05:05 10/09/17 05:05 Laboratory Tests 10/08/17 10/08/17 10/08/17 20:20 20:32 21:45 Plt Count PT with INR 12.20 H INR 1.08 BUN 61 H Creatinine 6.2 H AST ALT Creatine Kinase Index 0.6 CK-MB (CK-2) 1.101 B-Natriuretic Peptide 1422.69 H Ur Specific [place] Urine Protein Urine Blood Ur Leukocyte Esterase Urine WBC (Auto) Urine RBC (Auto) 10/09/17 10/09/17 10/09/17 00:33 05:05 05:05 Plt Count 390 PT with INR INR BUN Creatinine AST 12 L ALT 23 Creatine Kinase Index CK-MB (CK-2) B-Natriuretic Peptide Ur Specific [place] 1.006 Urine Protein 1+ H Urine Blood 3+ H Ur Leukocyte Esterase Trace H Urine WBC (Auto) 5 Urine RBC (Auto) 25 Problem List - Problems (1) Hypertensive emergency Code(s): I16.1 - HYPERTENSIVE EMERGENCY (2) Mitral regurgitation Code(s): I34.0 - NONRHEUMATIC MITRAL (VALVE) INSUFFICIENCY (3) cardiomyopathy Code(s): O90.3 - PERIPARTUM CARDIOMYOPATHY (4) Acute renal failure Code(s): N17.9 - ACUTE KIDNEY FAILURE, UNSPECIFIED (5) Status post delivery Code(s): Z98.891 - HISTORY OF UTERINE SCAR FROM PREVIOUS SURGERY (6) Disorder of puerperium Code(s): HIO8605 - (7) Anemia Code(s): D64.9 - ANEMIA, UNSPECIFIED Assessment/Plan 31 yrs , s/p Primary C/section x 2weeks ago in [facility] ailure secondary to MVP Mitral regurgitation ( as per ECHO findings & cloth painter impression ) , serum Beta -natriuretic peptide elevated , Chest Ct scan Bilateral Pl effusion AC renal failure , secondary to NSAIDS ( inrease serum BUN, Creatine , K,), Urine ouut put 1050 ml ,( unable to r/o diuretic phase of Ac enal failure). Renal us Nephrolithiasis Hypertension , rx Metropolol, Hydralzine , followed by Labetalol & Nifedipine . urine protein 1+/ edema 1+ Htn , can not r/o delayed onset of Preclempsia , but she is asymptomatic for symptoms of headache etc , HELLP work Up negative Anemia Plan as per cloth painter & it programmer management pt is transferred to [facility]
--- NOTE | 2017-10-09 13:51 | PN ---
Progress Note (short form) - Note Progress Note: post- c section x 2 weeks heart failure kidney failure hypertension High dose NSAID use discussed with Alanna fields cardiology, Nadia attending, and Micky OB- pt has severe MR, probably chronic and cardiomyopathy BP is better, she was switched to labetolol seen at bedside, c/o nausea and passing black stools Current Medications Docusate Sodium (Colace -) 100 mg PO TID [facility] Last Admin: 10/09/17 05:21 Dose: 100 mg Heparin Sodium (Porcine) (Heparin -) 5,000 unit SQ TID [facility] Last Admin: 10/09/17 05:21 Dose: 5,000 unit Hydralazine HCl (Apresoline -) 25 mg PO BID [facility] Last Admin: 10/09/17 09:10 Dose: 25 mg Labetalol HCl (Normodyne -) 200 mg PO BID [facility] Last Admin: 10/09/17 11:12 Dose: 200 mg Oxycodone HCl (Roxicodone -) 5 mg PO Q4H PRN PRN Reason: PAIN Pantoprazole Sodium (Protonix Iv) 40 mg IVPUSH DAILY [facility] Last Admin: 10/09/17 09:14 Dose: 40 mg Last Vital Signs Temp Pulse Resp BP Pulse Ox 98.2 F 65 17 162/93 99 10/09/17 08:03 10/09/17 08:03 10/09/17 08:08 10/09/17 10:45 10/09/17 08:08 slightly anxious mild abd pain diffuse, epigastric and lower abd Lungs clear Heart RRR Abd soft tender to light palpation CBC, BMP 10/09/17 05:05 10/09/17 05:05 IMP- TISHA from combination of nsaids, underlying htn kidney disease and heart failure new dx of MR and cardiomyopathy HTN and leg edema plus proteinuria could still be 2/2 pre-eclampsia Plan- agree with plans to transfer to heart failure center [facility] isabela guaiac to r/o janeth
--- NOTE | 2017-10-09 14:14 | DS ---
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ination Vital Signs: Vital Signs Temperature 98.2 F 10/09/17 08:03 Pulse Rate 65 10/09/17 08:03 Respiratory Rate 17 10/09/17 08:08 Blood Pressure 162/93 10/09/17 10:45 O2 Sat by Pulse Oximetry (%) 99 10/09/17 08:08 Findings/Remarks: NAD , AAOx3, cooperatie HEENT: dry MM, no JVD , no facial droop CV: RRR, nl S1, S2, no MRG. No JVD Lungs : CTAB EXT: trace pitting edema , DP 2 + b/l , no calf tenderness Abd; TTP in all quadrants, no rebound tenderness or guarding, soft, NL BS , healing CS scar in suprapubic area Labs: CBC, BMP 10/09/17 05:05 10/09/17 05:05 Discharge Summary Reason For Visit: POST CARDIOMYOPATHY Current Active Problems Acute renal failure (Acute) Hypertensive emergency (Acute) Mitral regurgitation (Acute) cardiomyopathy (Acute) Hospital Course: Unfortunate 31 y/o lady with h/o untreated HTN prior to her , who is now s/p CS delivery who presented with SOB and was found to have TISHA and pulmonary edema and HTN In ER , she was found to have elevated BP, and pulm edema on Cxray. CT chest without contrast was done and showed pulm edema and no infiltrate. -Her SOB was thought to be due to pulmonary edema , likely from HTN emergency in the setting of untreated HTN or from renal failure induced volume overload or from pre-eclampsia induced pulm edema . post cardiomyopathy was suspected so Echo was done. It showed severe MR with dilated L atrium and mildly reduced EF ( final read to follow) . her EKG showed no evidence of acute ischemia , and her trop was nL. PE is unlikely with WELLS score of 1.5( recent immobilization), no CP, there is pulmonary edema to explain SOB , has no DVT on US ,No tachycardia and no Hypoxia . EKG with no S1Q3T3, and no signs of R heart strain She was seen by card and was placed initially on hydralazine and metorpolol then changed to nifedipine and labetalol given the possibility of preeclampsia . CLIENT RESOLUTION SPECIALIST consult was placed , still no final recs at the time of this note. due to no hypoxia, or crackles on exam and her renal function , diuretics were not given . - her renal failure , was thought to be due to intrinsic injury ( AIN from heavy ibuprofen use , 600 q6hr x 2 weeks ) . Fena is 9.7 %. renal US showed no hydro . she was seen by nephrology. cr improved form 6.2 to 5.6 with no intervention - she was also found ot have mild hyperkalemia which was treated and resolved -Dispo : Transfer to [facility] - condition : stable - time spent 45 min - case was d/w renal and card . Condition: Fair - Instructions Diet, Activity, Other Instructions: Management of HTN emergency, post cardiomyopathy , and TISHA at [facility] Referrals: Negro Tomlin MD [Primary Care Provider] - Disposition: TRANSFER ACUTE CARE/OTHER HOSP - Home Medications Comprehensive Discharge Medication List: Ambulatory Orders Pnv No.95/Ferrous Fum/Folic AC [ Tablet] 1 each PO DAILY 07/10/12 Docusate Sodium [Colace -] 100 mg PO TID capsule 10/09/17 Labetalol HCl [Normodyne -] 200 mg PO BID tablet 10/09/17 Nifedipine ER [Procardia XL -] 30 mg PO DAILY tab.er.24 10/09/17 This patient is new to me today: Yes Date on this admission: 10/09/17 Emergency Visit: No Critical Care patient: No - Discharge Referral Referred to [facility] No
[2017-10-09] MEDS ORDERED: NIFEdipine E.R. 30 MG TABLET (FP) PO SCH (14:15)
[2017-10-09 15:15] VITALS: BP 166/105; PULSE 75; TEMP 99.3
== END 2017-10-09 15:23 | disposition short-term general hospital (02) | DRG 561 ==
LOC: JER 19:19 → JERBED 23:24 → J4W 10-09 01:14
PROVIDERS: ADMIT Internal Medicine; ATTEND Internal Medicine
DX: O90.3 Peripartum cardiomyopathy (principal); O90.4 Postpartum acute kidney failure; O90.81 Anemia of the puerperium; O90.89 Other complications of the puerperium, not elsewhere classified; E87.5 Hyperkalemia; I34.0 Nonrheumatic mitral (valve) insufficiency; O16.5 Unspecified maternal hypertension, complicating the puerperium; I50.9 Heart failure, unspecified; N18.9 Chronic kidney disease, unspecified; I16.1 Hypertensive emergency; J81.0 Acute pulmonary edema; Z98.891 History of uterine scar from previous surgery
CPT/HCPCS: 36415; 71010-TC; 71250-TC; 76775-TC; 80053; 81003; 81015; 82550; 82553; 82570; 83735; 83880; 84100; 84156; 84300; 84484; 85025; 85610; 93005; 93010; 93306-TC; 93970-TC; 99285-25; J1644

== ENCOUNTER 2024-12-27 08:47 | Day surgery (SDC) | payer OTHER ==
[2024-12-20 13:41] VITALS: BMI 33.2
[2024-12-27 10:50] VITALS: BP 121/77; PULSE 77; RESP 16; TEMP 97
== END 2024-12-27 10:58 | disposition home or self-care (01) ==
LOC: FASU-ENDO 08:47
PROVIDERS: ATTEND Internal Medicine Gastroenterology
PROC: 0DJD8ZZ Inspection of Lower Intestinal Tract, Via Natural or Artificial Opening Endoscopic (ICD-10-PCS; principal; 2024-12-27 09:51)
DX: R10.31 Right lower quadrant pain (principal); R10.32 Left lower quadrant pain; K62.89 Other specified diseases of anus and rectum
CPT/HCPCS: 81025